=== PATIENT | female | born 1940 ===

== ENCOUNTER 2019-03-20 06:55 | Day surgery (SDC) | payer OTHER ==
[~2019-03-20 06:55] MED LIST: AMLODIPINE BESYL5 MG PO; COZAAR50 MG PO; LIPITOR20 MG PO; TOPROL XL100 M1 PO
== END 2019-03-20 10:40 | disposition home or self-care (01) ==
LOC: AMB-ENDOS 06:55 → ADM 10:00 → AMB-ENDOS 10:40
DX: K62.89 Other specified diseases of anus and rectum (principal); K64.8 Other hemorrhoids

== ENCOUNTER 2019-03-24 17:47 | Emergency (ER) | payer OTHER ==
[~2019-03-24] VITALS: Ht 152.4 cm; Wt 70.3 kg
== END 2019-03-24 23:57 | disposition home or self-care (01) ==
LOC: ER 17:47
DX: K43.9 Ventral hernia without obstruction or gangrene (principal); K63.89 Other specified diseases of intestine

== ENCOUNTER 2019-04-02 20:42 | Emergency (ER) | payer OTHER ==
[~2019-04-02] VITALS: Ht 152.4 cm; Wt 68.0 kg
== END 2019-04-02 23:33 | disposition home or self-care (01) ==
LOC: ER 20:42
DX: K58.8 Other irritable bowel syndrome (principal)